=== PATIENT | male | born 1985 | race Asian ===

== ENCOUNTER 2020-08-18 10:57 | Emergency (ER) | payer BC ==
[~2020-08-18] VITALS: Ht 167.6 cm; Wt 82.6 kg
[2020-08-18] MEDS ORDERED: IBU600 M2 PO (13:08)
[2020-08-18 13:28] VITALS: BP 167/116
== END 2020-08-18 13:28 | disposition home or self-care (01) ==
LOC: ED 10:57
DX: S00.11XA Contusion of right eyelid and periocular area, initial encounter (principal); I10 Essential (primary) hypertension; Z88.1 Allergy status to other antibiotic agents; W20.8XXA Other cause of strike by thrown, projected or falling object, initial encounter; Y93.89 Activity, other specified; Y92.89 Other specified places as the place of occurrence of the external cause; Y99.8 Other external cause status